=== PATIENT | female | born 1980 | race American Indian/Alaskan Native ===

== ENCOUNTER 2017-11-24 10:19 | Outpatient (CLI) | payer MEDICAID ==
[2017-11-24 10:55] VITALS: BP 105/57
[2017-11-24 11:30] LABS: Bacteria,Urine 1+ /HPF (Negative); Bilirubin,Urine NEG (Negative); Blood,Urine NEG (Negative); Color,Urine Yellow (Yellow); Mucus,Urine FEW /HPF; Protein,Urine <15 mg/dL mg/dL (Negative); Urobilinogen,Urine < 2.0 mg/dL (<2.0)
[2017-11-24] MEDS ORDERED: LACTATED RINGERS 500 ML IV ONE (12:00)
== END 2017-11-24 12:28 | disposition home or self-care (01) ==
LOC: TRG 10:19
PROVIDERS: ATTEND Obstetrics & Gynecology
DX: O47.02 False labor before 37 completed weeks of gestation, second trimester (principal); Z3A.22 22 weeks gestation of pregnancy
CPT/HCPCS: 59025; 81001; 96360; J7120